=== PATIENT | female | born 1935 | race Caucasian/White ===

== ENCOUNTER 2016-10-01 17:31 | Inpatient (IN) | payer MEDICARE ==
[~2016-10-01 17:31] MED LIST: NORCO 5-325 TA1 EACH PO
[2016-10-02 00:19] LABS: HEMOGLOBIN 10.8 gm/dl (12.3-15.3); RED BLOOD COUNT 3.39 M/UL (4.00-5.10); WHITE BLOOD COUNT 7.3 K/UL (4.5-11.0)
[2016-10-02 00:35] LABS: BUN/CREATININE RATIO 30 (0-10)
[2016-10-02] MEDS ORDERED: FERROUS SULFAT325 MG PO (03:47)
[2016-10-02] MEDS ORDERED: LOSARTAN POTAS100 MG PO (03:48)
[2016-10-02] MEDS ORDERED: NIFEDIPINE ER30 MG PO (03:48)
[2016-10-02] MEDS ORDERED: TENORMIN 50 MG50 MG PO (03:49)
[2016-10-02] MEDS ORDERED: PRAVASTATIN SOD10 MG PO (03:49)
[2016-10-02 04:45] LABS: HEMOGLOBIN 10.1 gm/dl (12.3-15.3); RED BLOOD COUNT 3.16 M/UL (4.00-5.10); WHITE BLOOD COUNT 6.9 K/UL (4.5-11.0)
[2016-10-02 05:05] LABS: BUN/CREATININE RATIO 26 (0-10)
[2016-10-04 05:19] LABS: HEMOGLOBIN 10.4 gm/dl (12.3-15.3)
== END 2016-10-06 19:00 | DRG 488 ==
LOC: ER1 17:31 → M/S 10-02 00:10 → ZEROF 10-02 00:10 → M/S 10-02 00:10
PROVIDERS: Legal Medicine; Orthopaedic Surgery; Physician Assistant; ADMIT Internal Medicine
PROC: 3E0T3CZ (ICD-10-PCS; 2016-10-03)
PROC: 0QBF0ZZ Excision of Left Patella, Open Approach (ICD-10-PCS; principal; 2016-10-03 13:15)
DX: S82.042A Displaced comminuted fracture of left patella, initial encounter for closed fracture (principal); G92 Toxic encephalopathy; W01.0XXA Fall on same level from slipping, tripping and stumbling without subsequent striking against object, initial encounter; Y92.009 Unspecified place in unspecified non-institutional (private) residence as the place of occurrence of the external cause; T41.205A Adverse effect of unspecified general anesthetics, initial encounter; Y92.239 Unspecified place in hospital as the place of occurrence of the external cause; I48.0 Paroxysmal atrial fibrillation; D50.9 Iron deficiency anemia, unspecified; I10 Essential (primary) hypertension; M25.462 Effusion, left knee; E78.5 Hyperlipidemia, unspecified; K21.9 Gastro-esophageal reflux disease without esophagitis; K44.9 Diaphragmatic hernia without obstruction or gangrene; M81.0 Age-related osteoporosis without current pathological fracture; K58.9 Irritable bowel syndrome, unspecified; Z91.81 History of falling; Z87.311 Personal history of (healed) other pathological fracture; Z79.899 Other long term (current) drug therapy; Z98.1 Arthrodesis status; Z98.49 Cataract extraction status, unspecified eye; Z90.710 Acquired absence of both cervix and uterus; Z90.49 Acquired absence of other specified parts of digestive tract; Z98.890 Other specified postprocedural states; Z82.3 Family history of stroke
CPT/HCPCS: 29530; 36415; 73502; 73552; 73560; 73562; 73590; 80048; 80053; 81001; 82550; 82553; 82607; 82746; 83540; 83550; 83874; 84484; 85014; 85018; 85025; 85027; 85610; 85730; 87086; 90471; 93005; 96374; 96375; 97110; 97116; 97530; 99285; J0690; J1200; J1630; J1650; J1670; J2270; J2405; J2795; J7030; J7120